=== PATIENT | female | born 1980 | race Caucasian/White ===

== ENCOUNTER 2024-04-17 15:36 | Emergency (ER) | payer BC ==
[~2024-04-17] VITALS: Ht 160 cm; Wt 97.1 kg
[2024-04-17] MEDS: KETOROLAC TROMETHAMINE 60 MG/2 ML VIAL IM ONE (17:48)
[2024-04-17] MEDS ORDERED: ULTRAM 50MG50 MG PO (18:29)
[2024-04-17] MEDS ORDERED: IBUPROFEN600 MG PO (18:29)
[2024-04-17] MEDS ORDERED: MONTELUKAST SOD10 MG PO (19:06)
[2024-04-17] MEDS ORDERED: L-METHYLFOLATE7.5 M1 PO (19:06)
[2024-04-17] MEDS ORDERED: ENBREL50 MG/1 M1 (19:06)
[2024-04-17] MEDS ORDERED: SUMATRIPTAN SUC25 MG PO (19:06)
[2024-04-17] MEDS ORDERED: VITAMIN B-121000 MCG PO (19:06)
[2024-04-17] MEDS ORDERED: XARELTO10 MG PO (19:06)
[2024-04-17] MEDS ORDERED: VITAMIN K2 (M100 MCG (19:06)
[2024-04-17] MEDS ORDERED: VITAMIN D3125 MCG (19:06)
[2024-04-17 19:15] VITALS: PULSE 60; RESP 16; TEMP 98; O2SAT 100
== END 2024-04-17 20:18 | disposition home or self-care (01) ==
LOC: FSED 15:44
DX: S30.0XXA Contusion of lower back and pelvis, initial encounter (principal); W01.0XXA Fall on same level from slipping, tripping and stumbling without subsequent striking against object, initial encounter; Y93.01 Activity, walking, marching and hiking; Y92.89 Other specified places as the place of occurrence of the external cause; M06.9 Rheumatoid arthritis, unspecified; Z98.0 Intestinal bypass and anastomosis status
CPT/HCPCS: 72192; 96372; 99283; J1885